=== PATIENT | male | born 1990 | race Caucasian/White ===

== ENCOUNTER 2018-08-18 12:21 | Emergency (ER) | payer BC ==
[2018-08-18 12:44] VITALS: BP 154/86
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
== END 2018-08-18 14:19 | disposition home or self-care (01) ==
LOC: UCCORT 12:21
DX: S62.343A Nondisplaced fracture of base of third metacarpal bone, left hand, initial encounter for closed fracture (principal); S70.01XA Contusion of right hip, initial encounter; S70.11XA Contusion of right thigh, initial encounter; F17.210 Nicotine dependence, cigarettes, uncomplicated; V86.55XA Driver of 3- or 4- wheeled all-terrain vehicle (ATV) injured in nontraffic accident, initial encounter; Y93.I9 Activity, other involving external motion
CPT/HCPCS: 99212; G0463